=== PATIENT | male | born 1955 | race Caucasian/White ===

== ENCOUNTER → 2017-07-12 | Outpatient (CLI) | payer OTHER ==
--- NOTE | 2017-07-12 15:04 | CTL ---
EXAMINATION TYPE: CT Low Dose Lung DATE OF EXAM ORDERED: 07/12/2017 HISTORY: . Lung cancer screening CT DLP: 77.[address] CTDI: 2.2 mGy Automated exposure control for dose reduction was used. SCREENING VISIT: Initial COMPARISON: CT chest 05/06/2014 TECHNIQUE: Low dose computed tomography scan was performed through the chest at 1 mm thick sections a nd reconstructed images in the coronal plane at [address] DIAGNOSTIC QUALITY: Limited, but interpretable FINDINGS: LUNG NODULES: None. LUNGS: COPD: Severity: Moderate Fibrosis: Severity: None Lymph nodes: Nonenlarged scattered small lymph nodes Other findings: Some streak opacities in the right middle lobe lung base may be some atelectasis. RIGHT PLEURAL SPACE: Effusion: None Calcification: None Thickening: None Pneumothorax: None LEFT PLEURAL SPACE: Effusion: None Calcification: None Thickening: None Pneumothorax: None HEART: Heart Size: Normal Coronary calcification: Moderate Pericardial effusion: None OTHER FINDINGS: Upper abdomen: Normal Bony thorax: Normal Supraclavicular region: Normal Other: The ascending thoracic aorta at the level the main pulmonary artery is 3.7 cm. The main pulmon brittney artery the bifurcation is 2.7 cm. IMPRESSION: No suspicious changes for neoplasm. FOLLOW UP CT CHEST RECOMMENDATION: Screening per protocol [address] LUNG RAD: Lung rad 2
== END | disposition home or self-care (01) ==
LOC: RADCTMAIN 07:54
PROVIDERS: ATTEND Internal Medicine
DX: Z12.2 Encounter for screening for malignant neoplasm of respiratory organs (principal)

== ENCOUNTER → 2018-07-15 | Outpatient (CLI) | payer OTHER ==
--- NOTE | 2018-07-15 13:22 | CTL ---
EXAMINATION TYPE: CT Low Dose Lung DATE OF EXAM ORDERED: 07/15/2018 HISTORY: Long-term tobacco use. Lung cancer screening CT DLP: 80.[address] CTDI: 2.10 mGy Automated exposure control for dose reduction was used. SCREENING VISIT: Second study COMPARISON: CT low dose lung screening CT July 12, 2017 TECHNIQUE: Low dose computed tomography scan was performed through the chest at 1 mm thick sections a nd reconstructed images in the coronal plane at [address] DIAGNOSTIC QUALITY: Limited, but interpretable Some motion artifact degradation is present on current study particularly near diaphragms. FINDINGS: LUNG NODULES: None. LUNGS: COPD: Severity: Mild Fibrosis: Severity: Mild biapical Lymph nodes: None Other findings: None BILATERAL PLEURAL SPACE: Effusion: None Calcification: None Thickening: None Pneumothorax: None HEART: Heart Size: Normal Coronary calcification: Moderate Pericardial effusion: None OTHER FINDINGS: Upper abdomen: None Bony thorax: Moderate multilevel spurring and disc space narrowing mid to lower thoracic spine. Sligh t S-shaped scoliotic curvature. Supraclavicular region: Surgical clips left axillary region redemonstrated. Stable soft tissue nodule possible 1.5 cm left axillary lymph node image 60 with surgical clips superiorly. Other: Ascending aorta measures up to 3.6 cm in diameter axial image 153 not significant change from prior. IMPRESSION: Suboptimal study without suspicious nodules identified. FOLLOW UP CT CHEST RECOMMENDATION: Annual low-dose lung screening CT CT LUNG RAD: Lung-Rad 1 Negative
== END | disposition home or self-care (01) ==
LOC: RADCTMAIN 11:19
PROVIDERS: ATTEND Internal Medicine
DX: Z12.2 Encounter for screening for malignant neoplasm of respiratory organs (principal); Z87.891 Personal history of nicotine dependence

== ENCOUNTER 2018-08-14 09:21 | Day surgery (SDC) | payer OTHER ==
[2018-08-08 15:35] VITALS: BMI 26.4
[~2018-08-14 09:21] MED LIST: LACTATED RINGERS 1,000 ML IV SCH; LIDOCAINE 1% 20 ML VIAL (10MG/ML) FOR IV START INTRADERMA PRN
[2018-08-14 09:53] VITALS: RESP 16; TEMP 98.6
[2018-08-14] MEDS ORDERED: PROPOFOL 10 MG/ML 20 ML VIAL IV ONE (10:46)
[2018-08-14] MEDS ORDERED: GLUCAGON 1 MG/ML VIAL ONE (10:46)
--- NOTE | 2018-08-14 10:58 | P.GSHP ---
History of Present Illness H&P Date: 08/14/18 Chief Complaint: Screening colonoscopy This is a 63-year-old male who presents today for screening colonoscopy. Patient's last colonoscopy was over 10 years ago. He denies any significant GI complaints. Past Medical History Past Medical History: Cancer, COPD, Hypertension Additional Past Medical History / Comment(s): hx hodgkins lymphoma History of Any Multi-Drug Resistant Organisms: None Reported Past Surgical History: Adenoidectomy, Hernia Repair, Tonsillectomy Additional Past Surgical History / Comment(s): axilla lymph node removed, margo cataracts Past Anesthesia/Blood Transfusion Reactions: No Reported Reaction Smoking Status: Former smoker - Past Family History Mother Family Medical History: No Reported History Medications and Allergies Home Medications Medication Instructions Recorded Confirmed Type Albuterol Inhaler [Ventolin Hfa 1 - 2 puff INHALATION RT-Q6H 08/08/18 08/14/18 History Inhaler] Ipratropium-Albuterol Nebulize 3 ml INHALATION QID 08/08/18 08/08/18 History [Duoneb 0.5 mg-3 mg/3 ml Soln] Lisinopril 20 mg PO QAM 08/08/18 08/08/18 History Allergies Allergy/AdvReac Type Severity Reaction Status Date / Time No Known Allergies Allergy Verified 08/14/18 09:49 Surgical - Exam Vital Signs Temp Pulse Resp BP Pulse Ox 98.6 F 95 16 149/92 97 08/14/18 09:50 08/14/18 09:50 08/14/18 09:50 08/14/18 09:50 08/14/18 09:50 - General well developed, well nourished, no distress - Eyes PERRL - ENT normal pinna, normal nares - Neck no masses - Respiratory normal expansion - Cardiovascular Rhythm: regular - Abdomen Abdomen: soft, non tender Assessment and Plan Assessment: We'll perform screening colonoscopy.
--- NOTE | 2018-08-14 11:16 | P.OP ---
Date of Procedure: 08/14/18 Preoperative Diagnosis: Screening colonoscopy Postoperative Diagnosis: Internal hemorrhoids Procedure(s) Performed: Colonoscopy Anesthesia: MAC Surgeon: Loy Barragan Pathology: none sent Condition: stable Disposition: PACU Description of Procedure: PROCEDURE: The patient was placed on the endoscopy table in the lateral position. Digital rectal examination was performed which revealed internal hemorrhoids.. The prostate was symmetrical without nodules. Flexible colonoscope was then placed in the patient's anus and passed throughout the entire colon. The ileocecal valve was visualized. The cecum, ascending, transverse, descending and sigmoid colon were normal. The rectum was normal as well. There were no masses, polyps or diverticula noted in the entire colon. The internal hemorrhoids are noted on withdrawal scope. There is no active bleeding.
[2018-08-14 11:36] VITALS: BP 124/66; PULSE 101
== END 2018-08-14 12:06 | disposition home or self-care (01) ==
LOC: ORWHC2ENDO 09:21
PROVIDERS: ATTEND Surgery
DX: Z12.11 Encounter for screening for malignant neoplasm of colon (principal); K64.8 Other hemorrhoids; I10 Essential (primary) hypertension; J44.9 Chronic obstructive pulmonary disease, unspecified; Z85.71 Personal history of Hodgkin lymphoma; Z87.891 Personal history of nicotine dependence; Z79.899 Other long term (current) drug therapy
CPT/HCPCS: J1610; J2704; G0121

== ENCOUNTER → 2019-07-17 | Outpatient (CLI) | payer MEDICARE, OTHER ==
--- NOTE | 2019-07-18 07:27 | CTL ---
EXAMINATION TYPE: CT Low Dose Lung DATE OF EXAM ORDERED: 07/17/2019 HISTORY: Long-term tobacco use. Lung cancer screening CT DLP: [address] CTDI: 1.57 mGy Automated exposure control for dose reduction was used. SCREENING VISIT: Second study after baseline COMPARISON: Prior study July 15, 2018 and older CTs TECHNIQUE: Low dose computed tomography scan was performed through the chest at 1 mm thick sections a nd reconstructed images in the coronal plane at [address] DIAGNOSTIC QUALITY: Limited, but interpretable Some motion artifact degradation is present on current study particularly near diaphragms. FINDINGS: LUNG NODULES: None of significance measuring greater than 5 mm. LUNGS: COPD: Severity: Moderate Fibrosis: Severity: Mild to moderate biapical redemonstrated Lymph nodes: No greater than 1 cm Other findings: None BILATERAL PLEURAL SPACE: Effusion: None Calcification: None Thickening: None Pneumothorax: None HEART: Heart Size: Normal Coronary calcification: Moderate Pericardial effusion: None OTHER FINDINGS: Upper abdomen: Low dense thickening to both adrenal glands consistent with benign lipid rich hyperpla cinthya redemonstrated greater in the left. Bony thorax: Exaggerated thoracic kyphosis with mild multilevel spurring. Scoliotic curvature redemon strated. Supraclavicular region: Surgical clips left axillary region redemonstrated. Stable prominent but biop sied lymph node left axilla axial image 41 series 4. Other: None. IMPRESSION: Slightly suboptimal study without new suspicious greater than [address] CHEST RECOMMENDATION: Consider annual low-dose lung screening CT. CT LUNG RAD: Lung-Rad 1 Negative
== END | disposition home or self-care (01) ==
LOC: RADCTMAIN 15:39
PROVIDERS: ATTEND Internal Medicine Pulmonary Disease
DX: Z12.2 Encounter for screening for malignant neoplasm of respiratory organs (principal); R91.8 Other nonspecific abnormal finding of lung field; F17.210 Nicotine dependence, cigarettes, uncomplicated

== ENCOUNTER 2019-07-28 14:24 | Inpatient (IN) | payer MEDICARE, OTHER ==
[2019-07-28] MEDS ORDERED: IPRATROPIUM-ALBUTEROL 3 ML NEB INHALATION STA (14:30)
[2019-07-28] MEDS ORDERED: methylPREDNISolone SOD SUCCI 125 MG/2 ML VIAL IV STA (14:30)
--- NOTE | 2019-07-28 14:39 | ED ---
General Adult HPI - General Chief complaint: Shortness of Breath Stated complaint: respiratory distress Time Seen by Provider: 07/28/19 14:27 Source: patient, EMS, RN notes reviewed Mode of arrival: EMS Limitations: no limitations - History of Present Illness Initial comments: Patient is a pleasant 64-year-old male presenting to the emergency Department with complaints of cough and difficulty in breathing. Onset of symptoms was yesterday. Symptoms were much worse today. Cough is mild. Dyspnea was severe. Patient was only able to walk 5 or 6 feet before having to stop because of dyspnea. No chest pain. Patient does have history of similar symptoms. Sleep associated with COPD. Cough is been mild and nonproductive. No fever. - Related Data Home Medications Medication Instructions Recorded Confirmed Albuterol Inhaler [Ventolin Hfa 1 - 2 puff INHALATION RT-Q6H 08/08/18 08/14/18 Inhaler] Ipratropium-Albuterol Nebulize 3 ml INHALATION QID 08/08/18 08/08/18 [Duoneb 0.5 mg-3 mg/3 ml Soln] Lisinopril 20 mg PO QAM 08/08/18 08/08/18 Allergies Allergy/AdvReac Type Severity Reaction Status Date / Time No Known Allergies Allergy Verified 07/28/19 14:35 Review of Systems ROS Statement: Those systems with pertinent positive or pertinent negative responses have been documented in the HPI. ROS Other: All systems not noted in ROS Statement are negative. Constitutional: Denies: fever Eyes: Denies: eye pain ENT: Denies: ear pain Respiratory: Reports: as per HPI, dyspnea Cardiovascular: Denies: chest pain Endocrine: Reports: fatigue Gastrointestinal: Denies: abdominal pain Genitourinary: Denies: dysuria Musculoskeletal: Denies: back pain Skin: Denies: rash Neurological: Denies: weakness Past Medical History Past Medical History: Cancer, COPD, Hypertension Additional Past Medical History / Comment(s): hx hodgkins lymphoma History of Any Multi-Drug Resistant Organisms: None Reported Past Surgical History: Adenoidectomy, Hernia Repair, Tonsillectomy Additional Past Surgical History / Comment(s): axilla lymph node removed, margo cataracts Past Anesthesia/Blood Transfusion Reactions: No Reported Reaction Past Psychological History: No Psychological Hx Reported Smoking Status: Current some day smoker Past Alcohol Use History: None Reported Past Drug Use History: None Reported - Past Family History Mother Family Medical History: No Reported History General Exam Limitations: no limitations General appearance: alert Head exam: Present: normocephalic Eye exam: Present: normal appearance, PERRL ENT exam: Present: normal oropharynx Neck exam: Present: normal inspection Respiratory exam: Present: wheezes, decreased breath sounds Cardiovascular Exam: Present: tachycardia GI/Abdominal exam: Present: soft. Absent: tenderness Extremities exam: Present: normal inspection. Absent: pedal edema, calf tenderness Back exam: Present: normal inspection Neurological exam: Present: alert Psychiatric exam: Present: normal affect, normal mood Skin exam: Present: normal color Course Vital Signs 07/28/19 07/28/19 07/28/19 14:29 14:53 15:15 Temperature 100.1 F H Pulse Rate 123 H 114 H Respiratory 24 22 18 Rate Blood Pressure 212/122 O2 Sat by Pulse 95 Oximetry 07/28/19 07/28/19 07/28/19 15:25 16:01 16:20 Temperature Pulse Rate 111 H 113 H 114 H Respiratory 18 14 18 Rate Blood Pressure 181/126 O2 Sat by Pulse 91 L 95 Oximetry 07/28/19 16:40 Temperature Pulse Rate Respiratory Rate Blood Pressure 173/114 O2 Sat by Pulse Oximetry - Reevaluation(s) Reevaluation #1: 07/28/19 16:43 There is concern for possible pneumonia and sepsis diagnosed at 1640. Blood culture and lactic acid and IV antibiotics will be ordered. EKG Findings - EKG Comments: EKG Findings:: Sinus tachycardia 113. NV 1:30. QRS 86. QT 342. QTC 469. Normal axis. Septal Q's. No acute ST change. Medical Decision Making - Medical Decision Making Patient reevaluated. Patient and family updated. Breath sounds are improved however still patient is short of breath and tachycardic. Case was discussed in detail with Dr. Hilliard, who will admit covering for Dr. Polanco. - Lab Data Result diagrams: 07/28/19 15:06 07/28/19 15:06 Lab Results 07/28/19 07/28/19 07/28/19 Range/Units 15:06 15:06 15:06 WBC 12.9 H (3.8-10.6) k/uL RBC 5.48 (4.30-5.90) m/uL Hgb 16.8 (13.0-17.5) gm/dL Hct 52.0 (39.0-53.0) % MCV 94.9 (80.0-100.0) fL MCH 30.7 (25.0-35.0) pg MCHC 32.4 (31.0-37.0) g/dL RDW 13.2 (11.5-15.5) % Plt Count 212 (150-450) k/uL Neutrophils % 88 % Lymphocytes % 5 % Monocytes % 6 % Eosinophils % 0 % Basophils % 0 % Neutrophils # 11.3 H (1.3-7.7) k/uL Lymphocytes # 0.6 L (1.0-4.8) k/uL Monocytes # 0.7 (0-1.0) k/uL Eosinophils # 0.0 (0-0.7) k/uL Basophils # 0.0 (0-0.2) k/uL PT 10.3 (9.0-12.0) sec INR 1.0 (<1.2) APTT 22.5 (22.0-30.0) sec Sodium 143 (137-145) mmol/L Potassium 5.0 (3.5-5.1) mmol/L Chloride 106 (98-107) mmol/L Carbon Dioxide 24 (22-30) mmol/L Anion Gap 13 mmol/L BUN 30 H (9-20) mg/dL Creatinine 0.95 (0.66-1.25) mg/dL Est GFR (CKD-EPI)AfAm >90 (>60 ml/min/1.73 sqM) Est GFR (CKD-EPI)NonAf 84 (>60 ml/min/1.73 sqM) Glucose 101 H (74-99) mg/dL Plasma Lactic Acid Artur (0.7-2.0) mmol/L Calcium 9.4 (8.4-10.2) mg/dL Total Bilirubin 0.5 (0.2-1.3) mg/dL AST 29 (17-59) U/L ALT 18 (4-49) U/L Alkaline Phosphatase 104 (38-126) U/L Total Protein 6.7 (6.3-8.2) g/dL Albumin 4.3 (3.5-5.0) g/dL Influenza Type A RNA (Not Detectd) Influenza Type B (PCR) (Not Detectd) 07/28/19 07/28/19 Range/Units 15:06 16:20 WBC (3.8-10.6) k/uL RBC (4.30-5.90) m/uL Hgb (13.0-17.5) gm/dL Hct (39.0-53.0) % MCV (80.0-100.0) fL MCH (25.0-35.0) pg MCHC (31.0-37.0) g/dL RDW (11.5-15.5) % Plt Count (150-450) k/uL Neutrophils % % Lymphocytes % % Monocytes % % Eosinophils % % Basophils % % Neutrophils # (1.3-7.7) k/uL Lymphocytes # (1.0-4.8) k/uL Monocytes # (0-1.0) k/uL Eosinophils # (0-0.7) k/uL Basophils # (0-0.2) k/uL PT (9.0-12.0) sec INR (<1.2) APTT (22.0-30.0) sec Sodium (137-145) mmol/L Potassium (3.5-5.1) mmol/L Chloride (98-107) mmol/L Carbon Dioxide (22-30) mmol/L Anion Gap mmol/L BUN (9-20) mg/dL Creatinine (0.66-1.25) mg/dL Est GFR (CKD-EPI)AfAm (>60 ml/min/1.73 sqM) Est GFR (CKD-EPI)NonAf (>60 ml/min/1.73 sqM) Glucose (74-99) mg/dL Plasma Lactic Acid Artur 1.3 (0.7-2.0) mmol/L Calcium (8.4-10.2) mg/dL Total Bilirubin (0.2-1.3) mg/dL AST (17-59) U/L ALT (4-49) U/L Alkaline Phosphatase (38-126) U/L Total Protein (6.3-8.2) g/dL Albumin (3.5-5.0) g/dL Influenza Type A RNA Not Detected (Not Detectd) Influenza Type B (PCR) Not Detected (Not Detectd) - Radiology Data Radiology results: image reviewed (Chest x-ray shows diffuse interstitial prominence, correlate for atypical pneumonia or edema or bronchitis) Critical Care Time Critical Care Time: Yes Total Critical Care Time: 32 Disposition Clinical Impression: Acute exacerbation of chronic obstructive pulmonary disease Disposition: ADMITTED IP TO THIS HOSP Condition: Serious Is patient prescribed a controlled substance at d/c from ED?: No Referrals: Blake Daniel [Primary Care Provider] - 1-2 days Time of Disposition: 16:31 Decision Time: 16:31
[2019-07-28 15:29] LABS: Basophils % (A) 0 %; Eosinophils % (A) 0 %; HGB 16.8 gm/dL (13.0-17.5); Lymphocytes # (A) 0.6 k/uL (1.0-4.8); Lymphocytes % (A) 5 %; MCH 30.7 pg (25.0-35.0); MCHC 32.4 g/dL (31.0-37.0); MCV 94.9 fL (80.0-100.0); Mean Platelet Volume 8.6; Monocytes # (A) 0.7 k/uL (0-1.0); Monocytes % (A) 6 %; Neutrophils # (A) 11.3 k/uL (1.3-7.7); Neutrophils % (A) 88 %; Platelet Count 212 k/uL (150-450); RBC 5.48 m/uL (4.30-5.90); RDW 13.2 % (11.5-15.5); WBC 12.9 k/uL (3.8-10.6)
[2019-07-28 15:35] LABS: Partial Thromboplastin Time 22.5 sec (22.0-30.0); Prothrombin Time 10.3 sec (9.0-12.0)
[2019-07-28] MEDS ORDERED: ACETAMINOPHEN TAB 500 MG TAB PO STA (15:39)
[2019-07-28] MEDS ORDERED: ENALAPRILAT 1.25 MG/ML 1 ML VIAL IVP STA ×2 (15:40→16:40)
[2019-07-28 15:44] LABS: ALT 18 U/L (4-49); AST 29 U/L (17-59); African American GFR (CKD) >90 (>60 ml/min/1.73 sqM); Albumin 4.3 g/dL (3.5-5.0); Alkaline Phosphatase 104 U/L (38-126); Anion Gap 13 mmol/L; Blood Urea Nitrogen 30 mg/dL (9-20); Calcium 9.4 mg/dL (8.4-10.2); Carbon Dioxide 24 mmol/L (22-30); Chloride 106 mmol/L (98-107); Glucose 101 mg/dL (74-99); Non-African American GFR(CKD) 84 (>60 ml/min/1.73 sqM); Sodium 143 mmol/L (137-145); Total Bilirubin 0.5 mg/dL (0.2-1.3); Total Protein 6.7 g/dL (6.3-8.2)
--- NOTE | 2019-07-28 15:51 | XR ---
EXAMINATION TYPE: XR chest 2V DATE OF EXAM: 07/28/2019 COMPARISON: 04/22/2014 HISTORY: Difficulty breathing TECHNIQUE: Frontal and lateral views of the chest are obtained. FINDINGS: Diffuse interstitial prominence has increased from the prior. There is no focal air space opacity, pleural effusion, or pneumothorax seen. Surgical clips in the left axilla. Pulmonary hyperi nflation with flattening of the diaphragms on the lateral view suggests underlying COPD. The cardiac silhouette size is within normal limits. Diffuse osseous demineralization. The osseous structures ar e intact. Mild multilevel degenerative change of the spine. IMPRESSION: Diffuse interstitial prominence, increased from the prior. Consider atypical pneumonia, diffuse mild interstitial pulmonary edema or bronchitis.
[2019-07-28] MEDS ORDERED: PNEUMONIA PROTOCOL UTILIZED 1 EACH MISC PO PRN (16:45)
[2019-07-28] MEDS ORDERED: AZITHROMYCIN 500 MG in SODIUM CHLORIDE 0.9% 250 ML IVPB STA (16:45)
[2019-07-28] MEDS: SODIUM CHLORIDE 0.9% 1,000 ML IV SCH (16:59)
[2019-07-28] MEDS ORDERED: NALOXONE 0.4 MG/ML 1 ML VIAL IV PRN (17:30)
[2019-07-28] MEDS ORDERED: ONDANSETRON 4 MG/2 ML VIAL IVP PRN (17:30)
[2019-07-28] MEDS ORDERED: IPRATROPIUM-ALBUTEROL 3 ML NEB INHALATION PRN (17:31)
--- NOTE | 2019-07-28 17:41 | P.HPIM ---
History of Present Illness H&P Date: 07/28/19 Chief Complaint: sob 64-year-old male with hx of COPD, continues to smoke, not on home O2 presenting to the emergency Department with complaints of cough and difficulty in br eathing. Onset of symptoms was yesterday. Symptoms were much worse today. Cough is mild, dry without phlegm production. Patient also has slight fevers and chills as well as diaphoresis. Activity very limited due to shortness of breath, patient was only able to walk 5 or 6 feet before having to stop because of dyspnea. No chest pain. Patient does have history of similar symptoms. He felt slightly nauseous, no vomiting. No diarrhea. No urinary symptoms. In the emergency department and was found to be tachycardic with slightly elevated blood pressure and tachypnea. He was treated with nebulizations, IV steroids and antibiotics and was admitted for further evaluation and management. Review of Systems Complete review of system performed, pertinent positives per HPI, otherwise negative Past Medical History Past Medical History: Cancer, COPD, Hypertension Additional Past Medical History / Comment(s): hx hodgkins lymphoma History of Any Multi-Drug Resistant Organisms: None Reported Past Surgical History: Adenoidectomy, Hernia Repair, Tonsillectomy Additional Past Surgical History / Comment(s): axilla lymph node removed, margo cataracts Past Anesthesia/Blood Transfusion Reactions: No Reported Reaction Past Psychological History: No Psychological Hx Reported Smoking Status: Current some day smoker Past Alcohol Use History: None Reported Past Drug Use History: None Reported - Past Family History Mother Family Medical History: No Reported History Medications and Allergies Home Medications Medication Instructions Recorded Confirmed Type Albuterol Inhaler [Ventolin Hfa 1 - 2 puff INHALATION RT-Q6H PRN 08/08/18 07/28/19 History Inhaler] Ipratropium-Albuterol Nebulize 3 ml INHALATION RT-QID PRN 08/08/18 07/28/19 History [Duoneb 0.5 mg-3 mg/3 ml Soln] Lisinopril [Zestril] 5 mg PO DAILY 07/28/19 07/28/19 History Allergies Allergy/AdvReac Type Severity Reaction Status Date / Time No Known Allergies Allergy Verified 07/28/19 16:50 Physical Exam Vitals: Vital Signs Temp Pulse Resp BP Pulse Ox 07/28/19 16:40 173/114 07/28/19 16:20 114 H 18 181/126 95 07/28/19 16:01 113 H 14 91 L 07/28/19 15:25 111 H 18 07/28/19 15:15 114 H 18 07/28/19 14:53 22 07/28/19 14:29 100.1 F H 123 H 24 212/122 95 Intake and Output 07/28/19 07/28/19 07/28/19 06:59 14:59 22:59 Other: Weight 72.575 kg Constitutional: Mild to moderate respiratory distress, conversant, pleasant Eyes:Anicteric sclerae, moist conjunctiva, no lid-lag, PERRLA, ENMT: Oropharynx clear, no erythema, exudates Neck: Supple, FROM, no masses, or JVD, No carotid bruits, No thyromegaly Lungs: Bilateral diffuse wheezing, diminished breath sounds bilaterally. Mild accessory muscle use Cardiovascular: Tachycardic, regular No murmurs, gallops, or rubs, No peripheral edema Abdominal: Soft, Nontender, no guarding, rebound or rigidity, Normoactive bowel sounds, No hepatomegaly, No splenomegaly, No palpable mass Skin: Normal temperature, tone, texture, turgor, no induration, No subcutaneous nodules, No rash, lesions, No ulcers Extremities: No digital cyanosis, No clubbing, Pedal pulses intact and symmetrical, Radial pulses intact and symmetrical, No calf tenderness Psychiatric: Alert and oriented to person, place and time, appropriate affect, intact judgement Neuro: Muscles Strength 5/5 in all 4 extremities, Sensation to light touch grossly present throughout, Cranial nerves II-XII grossly intact, no focal sensory deficits Results CBC & Chem 7: 07/28/19 15:06 07/28/19 15:06 Labs: Abnormal Lab Results - Last 24 Hours (Table) 07/28/19 07/28/19 Range/Units 15:06 15:06 WBC 12.9 H (3.8-10.6) k/uL Neutrophils # 11.3 H (1.3-7.7) k/uL Lymphocytes # 0.6 L (1.0-4.8) k/uL BUN 30 H (9-20) mg/dL Glucose 101 H (74-99) mg/dL Assessment and Plan Plan: Acute sepsis/acute community-acquired pneumonia Blood cultures obtained in the emergency department Send sputum cultures Antibiotics DuoNeb Steroids Acute COPD exacerbation Management as above Accelerated hypertension Patient has history of hypertension but he is currently not taking his BP meds Restart lisinopril Hold IV fluids Smoking Counseled to quit History of Hodgkins Lymphoma Currently in remission Admitted to inpatient, expected length of stay left more than 2 midnight Anticipated disposition: Home Anticipated discharge: 2-3 days Sepsis - Sepsis Sepsis Focused Exam #1 Sepsis Focused Exam Date: 07/28/19 Sepsis Focused Exam Time: 17:00 Sepsis Focused Exam Complete: Yes Capillary Refill: < 2 Seconds: Fingers, Toes Peripheral Pulses: Normal: Radial (R), Radial (L), Posterior Tibialis (R), Posterior Tibialis (L), Dorsalis Pedis (R), Dorsalis Pedis (L) Skin Color: Normal for Patient Respiratory Exam: respiratory distress, wheezes, rhonchi, decreased breath sounds Cardiovascular Exam: regular rate, tachycardia
[2019-07-28] MEDS: methylPREDNISolone SOD SUCCI 125 MG/2 ML VIAL IV SCH ×2 (19:07→23:51)
[2019-07-28] MEDS: IPRATROPIUM-ALBUTEROL 3 ML NEB INHALATION SCH (19:12)
[2019-07-28] MEDS: LISINOPRIL 5 MG TAB PO SCH (20:48)
[2019-07-29] MEDS ORDERED: hydrALAZINE HCL 25 MG TAB PO STA ×2 (03:22→06:52)
[2019-07-29] MEDS: SODIUM CHLORIDE 0.9% 1,000 ML IV SCH ×2 (03:28→12:07)
[2019-07-29] MEDS: methylPREDNISolone SOD SUCCI 125 MG/2 ML VIAL IV SCH ×3 (05:11→17:32)
[2019-07-29 06:28] LABS: Basophils % (A) 0 %; Eosinophils % (A) 0 %; HCT 49.2 % (39.0-53.0); HGB 15.9 gm/dL (13.0-17.5); Lymphocytes # (A) 0.7 k/uL (1.0-4.8); Lymphocytes % (A) 6 %; MCH 30.8 pg (25.0-35.0); MCHC 32.3 g/dL (31.0-37.0); MCV 95.5 fL (80.0-100.0); Mean Platelet Volume 8.5; Monocytes # (A) 0.3 k/uL (0-1.0); Monocytes % (A) 3 %; Neutrophils # (A) 11.1 k/uL (1.3-7.7); Neutrophils % (A) 90 %; Platelet Count 218 k/uL (150-450); RBC 5.15 m/uL (4.30-5.90); RDW 13.2 % (11.5-15.5); WBC 12.3 k/uL (3.8-10.6)
[2019-07-29 06:42] LABS: African American GFR (CKD) >90 (>60 ml/min/1.73 sqM); Anion Gap 10 mmol/L; Blood Urea Nitrogen 35 mg/dL (9-20); Calcium 9.2 mg/dL (8.4-10.2); Carbon Dioxide 26 mmol/L (22-30); Chloride 108 mmol/L (98-107); Glucose 131 mg/dL (74-99); Magnesium 2.4 mg/dL (1.6-2.3); Non-African American GFR(CKD) 88 (>60 ml/min/1.73 sqM); Phosphorus 4.4 mg/dL (2.5-4.5); Sodium 144 mmol/L (137-145)
[2019-07-29 06:47] LABS: Glucose,Whole Blood 126 mg/dL (75-99)
[2019-07-29] MEDS: INSULIN ASPART (NovoLOG) 100 UNIT/ML VIAL SQ SCH ×4 (06:48→20:53)
--- NOTE | 2019-07-29 07:50 | CONS ---
CONSULTATION Rogelio Mckeon is a 64-year-old male who presented to the ED at [facility] with increasing shortness of breath of about 2 days' duration. He denied any fever or chills. He had some cough but was not bringing up much phlegm. He subsequently was admitted for further evaluation and management. PAST MEDICAL HISTORY: Positive for COPD, asthma, hypertension, Hodgkin lymphoma, history of lung fibrotic changes, which may have been partly due to his previous treatment for lymphoma. FAMILY HISTORY: Noncontributory. SOCIAL HISTORY: Patient is an everyday smoker. He smokes 1-2 packs of cigarettes per day. He does not drink alcohol excessively. MEDICATIONS: Prior to admission were lisinopril, DuoNeb, and Ventolin. REVIEW OF SYSTEMS: Noncontributory. PHYSICAL EXAMINATION: His blood pressure is 150/101, respiratory rate 20, pulse rate of 105, temperature 98.1, O2 saturation on 3 L by nasal cannula is 93%. When he came to the ER, his temperature had been 100.1 degrees Fahrenheit. HEENT: Reveals pupils that are equal, no jugular venous distention. CHEST: Reveals decreased breath sounds. Prolonged expiration. Expiratory wheeze on forced exhalation. Scattered basal crackles and hyperinflated chest. LABORATORY DATA: White count is 12.9, hemoglobin of 16.8. Sodium 143, potassium 5, chloride 106, bicarb 24, BUN 30, creatinine 0.95. Chest x-ray shows interstitial prominence. IMPRESSION: 1. Acute on chronic respiratory failure secondary to asthma with chronic obstructive pulmonary disease with acute exacerbation. 2. Polycythemia in part due to chronic hypoxemia is likely. 3. Interstitial changes that somewhat may be due to chronic lung fibrosis, baseline. At this point in time, I would keep him on azithromycin and Rocephin because of his low- grade fever. Keep him on bronchodilators and aerosolized steroids. Keep him on IV steroids and supplemental oxygen. Depending on how he does, we shall make further changes to his care. He was counseled regarding his condition and this approach and has a fair understanding of our recommendations. MMODL / IJN: [id number] /
[2019-07-29] MEDS: IPRATROPIUM-ALBUTEROL 3 ML NEB INHALATION SCH ×4 (07:54→19:12)
[2019-07-29] MEDS: BUDESONIDE 0.5 MG/2 ML NEBU INHALATION SCH ×2 (07:54→19:12)
[2019-07-29] MEDS: LISINOPRIL 5 MG TAB PO SCH (08:49)
[2019-07-29] MEDS: AZITHROMYCIN 500 MG TAB PO SCH (08:49)
[2019-07-29] MEDS: METOPROLOL TARTRATE 25 MG TAB PO SCH ×2 (08:49→20:53)
--- NOTE | 2019-07-29 08:56 | XR ---
EXAMINATION TYPE: XR chest 2V DATE OF EXAM: 07/29/2019 COMPARISON: Prior chest x-ray 07/28/2019 HISTORY: Pneumonia TECHNIQUE: Frontal and lateral views of the chest are obtained. FINDINGS: There are prominent lung volumes with flattening the hemidiaphragms, increased retrosterna l airspace, AP dimension of the chest is increased consistent with underlying emphysema, COPD. Aorta is dense and ectatic. Heart is stable. Patient is rotated. No pneumothorax or pleural effusion. Apica l pleural thickening is mild. Bones are stable. Surgical clips present in the left axilla. IMPRESSION: No acute cardiopulmonary process. COPD. Additional findings above.
[2019-07-29] MEDS ORDERED: SODIUM CHLORIDE 0.65% NASAL SPRAY 44 ML BTL NASAL PRN (09:41)
--- NOTE | 2019-07-29 11:42 | P.PN ---
Subjective Progress Note Date: 07/29/19 Principal diagnosis: sob Patient is feeling little better today. Still having nasal congestion and cough. His blood pressure and heart rate have been elevated since he was admit [facility] last night. Objective - Vital Signs Vital signs: Vital Signs Temp 98.1 F 07/29/19 03:01 Pulse 102 H 07/29/19 08:09 Resp 14 07/29/19 03:12 BP 208/106 07/29/19 07:08 Pulse Ox 93 L 07/29/19 03:01 Intake & Output 07/28/19 07/29/19 07/29/19 18:59 06:59 18:59 Intake Total 940 Output Total 300 400 Balance 640 -400 Weight 72.575 kg 62.9 kg Intake: Intake, IV Titration 400 Amount cefTRIAXone 1 gm In 400 Sodium Chloride 0.9% 50 ml @ 100 mls/hr IVPB [facility] Rx#:[id number] Oral 540 Output: Urine 300 400 Other: Voiding Method Urinal # Bowel Movements 0 - Exam Constitutional: Mild to moderate respiratory distress, conversant, pleasant Eyes:Anicteric sclerae, moist conjunctiva, no lid-lag, PERRLA, ENMT: Oropharynx clear, no erythema, exudates Neck: Supple, FROM, no masses, or JVD, No carotid bruits, No thyromegaly Lungs: Bilateral diffuse wheezing, diminished breath sounds bilaterally. Mild accessory muscle use Cardiovascular: Tachycardic, regular No murmurs, gallops, or rubs, No peripheral edema Abdominal: Soft, Nontender, no guarding, rebound or rigidity, Normoactive bowel sounds, No hepatomegaly, No splenomegaly, No palpable mass Skin: Normal temperature, tone, texture, turgor, no induration, No subcutaneous nodules, No rash, lesions, No ulcers Extremities: No digital cyanosis, No clubbing, Pedal pulses intact and symmetrical, Radial pulses intact and symmetrical, No calf tenderness Psychiatric: Alert and oriented to person, place and time, appropriate affect, intact judgement Neuro: Muscles Strength 5/5 in all 4 extremities, Sensation to light touch grossly present throughout, Cranial nerves II-XII grossly intact, no focal sensory deficits - Labs CBC & Chem 7: 07/29/19 05:57 07/29/19 05:57 Labs: Abnormal Lab Results - Last 24 Hours (Table) 0307/28/19 07/29/19 Range/Units 15:06 15:06 05:57 WBC 12.9 H 12.3 H (3.8-10.6) k/uL Neutrophils # 11.3 H 11.1 H (1.3-7.7) k/uL Lymphocytes # 0.6 L 0.7 L (1.0-4.8) k/uL Chloride (98-107) mmol/L BUN 30 H (9-20) mg/dL Glucose 101 H (74-99) mg/dL POC Glucose (mg/dL) (75-99) mg/dL Magnesium (1.6-2.3) mg/dL 07/29/19 07/29/19 Range/Units 05:57 06:45 WBC (3.8-10.6) k/uL Neutrophils # (1.3-7.7) k/uL Lymphocytes # (1.0-4.8) k/uL Chloride 108 H (98-107) mmol/L BUN 35 H (9-20) mg/dL Glucose 131 H (74-99) mg/dL POC Glucose (mg/dL) 126 H (75-99) mg/dL Magnesium 2.4 H (1.6-2.3) mg/dL Assessment and Plan Plan: Acute sepsis/acute community-acquired pneumonia Blood cultures obtained in the emergency department Sputum cultures Antibiotics DuoNeb Steroids Nasal spray for congestion Acute COPD exacerbation Management as above Accelerated hypertension Patient has history of hypertension but he was not taking his BP meds Restarted lisinopril Add metoprolol 25mg p.o bid Smoking Counseled to quit History of Hodgkins Lymphoma Currently in remission Admitted to inpatient, expected length of stay left more than 2 midnight Anticipated disposition: Home Anticipated discharge: 1-2 days
[2019-07-29 11:56] VITALS: BMI 21.0
[2019-07-29 12:08] LABS: Glucose,Whole Blood 114 mg/dL (75-99)
[2019-07-29 17:08] LABS: Glucose,Whole Blood 130 mg/dL (75-99)
[2019-07-29 20:36] LABS: Glucose,Whole Blood 136 mg/dL (75-99)
--- NOTE | 2019-07-29 22:07 | PN ---
PROGRESS NOTE DATE OF SERVICE: 07/29/2019 This patient has been hemodynamically stable. He continues to have shortness of breath and is only slightly better at this time. On physical examination, blood pressure is 175/86, respiratory rate of 18, pulse rate 99. Oxygen on 3 L by nasal cannula is 97%. HEENT is unremarkable. Chest reveals decreased breath sounds, prolonged exhalations, scattered crackles, bilateral expiratory wheeze. Cardiovascular system reveals an S1, S2. Abdomen is soft. There is no pedal edema. White count is 12.3, hemoglobin of 15.9, sodium 144, potassium 5, chloride 108, bicarb 26, BUN 35, creatinine 0.91. IMPRESSION AT THIS TIME: 1. Severe chronic obstructive pulmonary disease with asthma with acute exacerbation. 2. Lung fibrosis. Continue the patient on azithromycin, Rocephin, budesonide, IV steroids, bronchodilators and aerosolized steroids. His prognosis is fair. MMODL / IJN: [id number] /
[2019-07-30] MEDS: IPRATROPIUM-ALBUTEROL 3 ML NEB INHALATION PRN (05:18)
[2019-07-30 05:56] LABS: Glucose,Whole Blood 115 mg/dL (75-99)
[2019-07-30] MEDS: SODIUM CHLORIDE 0.9% 1,000 ML IV SCH ×3 (06:04→16:59)
[2019-07-30] MEDS: methylPREDNISolone SOD SUCCI 125 MG/2 ML VIAL IV SCH ×4 (06:06→16:59)
[2019-07-30] MEDS: INSULIN ASPART (NovoLOG) 100 UNIT/ML VIAL SQ SCH ×4 (06:13→21:35)
[2019-07-30] MEDS: BUDESONIDE 0.5 MG/2 ML NEBU INHALATION SCH ×2 (08:30→19:51)
[2019-07-30] MEDS: IPRATROPIUM-ALBUTEROL 3 ML NEB INHALATION SCH ×4 (08:30→19:51)
[2019-07-30] MEDS: METOPROLOL TARTRATE 25 MG TAB PO SCH ×2 (08:56→21:32)
[2019-07-30] MEDS: LISINOPRIL 5 MG TAB PO SCH (08:56)
[2019-07-30] MEDS: AZITHROMYCIN 500 MG TAB PO SCH (08:56)
[2019-07-30 11:43] LABS: Glucose,Whole Blood 100 mg/dL (75-99)
--- NOTE | 2019-07-30 15:03 | P.PN ---
Subjective Progress Note Date: 07/30/19 Principal diagnosis: sob Patient is doing better, breathing is improving. No chest pain. No overnight events. Objective - Vital Signs Vital signs: Vital Signs Temp 98.4 F 07/30/19 08:00 Pulse 97 07/30/19 12:00 Resp 28 H 07/30/19 12:00 BP 141/81 07/30/19 12:58 Pulse Ox 95 07/30/19 12:00 Intake & Output 07/29/19 07/30/19 07/30/19 18:59 06:59 18:59 Intake Total 240 360 Output Total 134 226 6969 Balance -260 400 -5938 Weight 62.9 kg 64.5 kg Intake: Oral 240 360 Output: Urine 759 351 8450 Other: Voiding Method Urinal Urinal Urinal # Voids 200 1 # Bowel Movements 0 0 - Exam Constitutional: Mild to moderate respiratory distress, conversant, pleasant Eyes:Anicteric sclerae, moist conjunctiva, no lid-lag, PERRLA, ENMT: Oropharynx clear, no erythema, exudates Neck: Supple, FROM, no masses, or JVD, No carotid bruits, No thyromegaly Lungs: Bilateral diffuse wheezing, diminished breath sounds bilaterally. Mild accessory muscle use Cardiovascular: Tachycardic, regular No murmurs, gallops, or rubs, No peripheral edema Abdominal: Soft, Nontender, no guarding, rebound or rigidity, Normoactive bowel sounds, No hepatomegaly, No splenomegaly, No palpable mass Skin: Normal temperature, tone, texture, turgor, no induration, No subcutaneous nodules, No rash, lesions, No ulcers Extremities: No digital cyanosis, No clubbing, Pedal pulses intact and symmetrical, Radial pulses intact and symmetrical, No calf tenderness Psychiatric: Alert and oriented to person, place and time, appropriate affect, intact judgement Neuro: Muscles Strength 5/5 in all 4 extremities, Sensation to light touch g rossly present throughout, Cranial nerves II-XII grossly intact, no focal sensory deficits - Labs CBC & Chem 7: 07/29/19 05:57 07/29/19 05:57 Labs: Abnormal Lab Results - Last 24 Hours (Table) 07/29/19 07/29/19 07/30/19 Range/Units 17:00 20:35 05:54 POC Glucose (mg/dL) 130 H 136 H 115 H (75-99) mg/dL 07/30/19 Range/Units 11:40 POC Glucose (mg/dL) 100 H (75-99) mg/dL Microbiology - Last 24 Hours (Table) 07/28/19 15:06 Blood Culture - Preliminary Blood No Growth after 24 hours Assessment and Plan Plan: Acute sepsis/acute community-acquired pneumonia Blood cultures still no growth Sputum cultures Continue antibiotics, DuoNeb, steroids Nasal saline spray for congestion Acute COPD exacerbation Management as above Accelerated hypertension Improved Patient has history of hypertension but he was not taking his BP meds Restarted lisinopril Added metoprolol 25mg p.o bid Smoking Counseled to quit History of Hodgkins Lymphoma Currently in remission Anticipated disposition: Home Anticipated discharge: 1-2 days
[2019-07-30 16:55] LABS: Glucose,Whole Blood 113 mg/dL (75-99)
--- NOTE | 2019-07-30 17:19 | PN ---
PROGRESS NOTE DATE OF SERVICE: 07/30/2019 This patient has been hemodynamically stable and continues to have shortness of breath, but he is doing better overall. On physical examination, blood pressure is 141/80, respiratory rate 28, pulse rate 97. He is afebrile. Oxygen saturation on room air is 95%. HEENT is unremarkable. Chest reveals decreased breath sounds with prolonged exhalation. Cardiovascular system reveals an S1, S2. Abdomen is soft. There is no pedal edema. IMPRESSION AT THIS TIME: 1. Asthma with acute exacerbation. 2. Chronic obstructive pulmonary disease. 3. Pulmonary fibrosis. Continue IV and aerosolized steroids along with bronchodilators and antibiotics. His prognosis is fair. MMODL / IJN: [id number] /
[2019-07-30 20:42] LABS: Glucose,Whole Blood 148 mg/dL (75-99)
[2019-07-31] MEDS: methylPREDNISolone SOD SUCCI 125 MG/2 ML VIAL IV SCH ×4 (01:50→18:21)
[2019-07-31] MEDS: IPRATROPIUM-ALBUTEROL 3 ML NEB INHALATION PRN (03:35)
[2019-07-31] MEDS ORDERED: FUROSEMIDE 10 MG/ML 2 ML VIAL IV ONE (03:50)
--- NOTE | 2019-07-31 04:07 | XR ---
EXAMINATION TYPE: XR chest 1V portable DATE OF EXAM: 07/31/2019 COMPARISON: 07/29/2019 HISTORY: Short of breath TECHNIQUE: FINDINGS: There is no heart failure. There is mild coarsening of the lung markings. There are no brianne r masses. Thoracic aorta is atheromatous. There is no pleural effusion. There are chest leads. IMPRESSION: No active cardiopulmonary disease. Mild pulmonary fibrotic changes.
[2019-07-31 06:23] LABS: Glucose,Whole Blood 107 mg/dL (75-99)
[2019-07-31] MEDS: INSULIN ASPART (NovoLOG) 100 UNIT/ML VIAL SQ SCH ×4 (07:00→22:04)
[2019-07-31 07:31] LABS: ABG Base Excess 6.7 mmol/L; ABG HCO3 34 mmol/L (21-25); ABG Oxygen Saturation 97.2 % (94-97); ABG PH 7.23 (7.35-7.45); ABG PO2 88 mmHg (83-108); ABG TCO2 37 mmol/L (19-24); Allen Test Performed? Yes
[2019-07-31 07:35] LABS: ABG PCO2 82 mmHg (35-45)
[2019-07-31] MEDS: IPRATROPIUM-ALBUTEROL 3 ML NEB INHALATION SCH ×4 (08:40→19:07)
[2019-07-31] MEDS: BUDESONIDE 0.5 MG/2 ML NEBU INHALATION SCH ×2 (08:40→19:07)
[2019-07-31] MEDS: AZITHROMYCIN 500 MG TAB PO SCH (08:41)
[2019-07-31] MEDS: METOPROLOL TARTRATE 25 MG TAB PO SCH (08:41)
[2019-07-31] MEDS: LISINOPRIL 5 MG TAB PO SCH (08:41)
[2019-07-31] MEDS: LORazepam 2 MG/ML INJ IV PRN ×4 (09:31→19:48)
--- NOTE | 2019-07-31 11:22 | P.PN ---
Subjective Progress Note Date: 07/31/19 Principal diagnosis: sob Patient has some confusion last night, ABG was done that shows severe hypercapnia with PCO2 up in the 80s. Objective - Vital Signs Vital signs: Vital Signs Temp 98.3 F 07/31/19 09:00 Pulse 96 07/31/19 09:17 Resp 20 07/31/19 09:00 BP 179/101 07/31/19 09:00 Pulse Ox 92 L 07/31/19 09:00 Intake & Output 07/30/19 07/31/19 07/31/19 18:59 06:59 18:59 Intake Total 600 1180 100 Output Total 2009 400 Balance -1410 780 100 Weight 66.5 kg Intake: Oral 600 1180 100 Output: Urine 2009 400 Other: Voiding Method Urinal Urinal # Voids 1 1 # Bowel Movements 0 0 - Exam Constitutional: Mild to moderate respiratory distress, conversant, pleasant Eyes:Anicteric sclerae, moist conjunctiva, no lid-lag, PERRLA, ENMT: Oropharynx clear, no erythema, exudates Neck: Supple, FROM, no masses, or JVD, No carotid bruits, No thyromegaly Lungs: Bilateral diffuse wheezing, diminished breath sounds bilaterally. Mild accessory muscle use Cardiovascular: Tachycardic, regular No murmurs, gallops, or rubs, No peripheral edema Abdominal: Soft, Nontender, no guarding, rebound or rigidity, Normoactive bowel sounds, No hepatomegaly, No splenomegaly, No palpable mass Skin: Normal temperature, tone, texture, turgor, no induration, No subcutaneous nodules, No rash, lesions, No ulcers Extremities: No digital cyanosis, No clubbing, Pedal pulses intact and symmetrical, Radial pulses intact and symmetrical, No calf tenderness Psychiatric: Alert and oriented to person, place and time, appropriate affect, intact judgement Neuro: Muscles Strength 5/5 in all 4 extremities, Sensation to light touch grossly present throughout, Cranial nerves II-XII grossly intact, no focal sensory deficits - Labs CBC & Chem 7: 07/29/19 05:57 07/29/19 05:57 Labs: Abnormal Lab Results - Last 24 Hours (Table) 07/30/19 07/30/19 07/30/19 Range/Units 11:40 16:51 20:41 ABG pH (7.35-7.45) ABG pCO2 (35-45) mmHg ABG HCO3 (21-25) mmol/L ABG Total CO2 (19-24) mmol/L ABG O2 Saturation (94-97) % POC Glucose (mg/dL) 100 H 113 H 148 H (75-99) mg/dL 07/31/19 07/31/19 Range/Units 06:22 07:25 ABG pH 7.23 L (7.35-7.45) ABG pCO2 82 H* (35-45) mmHg ABG HCO3 34 H (21-25) mmol/L ABG Total CO2 37 H (19-24) mmol/L ABG O2 Saturation 97.2 H (94-97) % POC Glucose (mg/dL) 107 H (75-99) mg/dL Microbiology - Last 24 Hours (Table) 07/30/19 08:30 Gram Stain - Preliminary Sputum Sputum Culture - Preliminary 07/28/19 15:06 Blood Culture - Preliminary Blood No Growth after 48 hours Assessment and Plan Plan: Acute hypoxic respiratory failure Currently requiring BiPAP Ativan when necessary for anxiety Patient was encouraged to tolerate the BiPAP, Treatment as below Acute sepsis/acute community-acquired pneumonia Blood cultures still no growth Sputum cultures pending Continue antibiotics, DuoNeb, steroids Nasal saline spray for congestion Acute COPD exacerbation Continue steroids and DuoNeb's as above Accelerated hypertension Improved Patient has history of hypertension but he was not taking his BP meds Restarted lisinopril Added metoprolol 25mg p.o bid Smoking Counseled to quit History of Hodgkins Lymphoma Currently in remission Anticipated disposition: Home Anticipated discharge: 1-2 days
[2019-07-31 11:40] LABS: Glucose,Whole Blood 109 mg/dL (75-99)
--- NOTE | 2019-07-31 16:28 | PN ---
PROGRESS NOTE DATE OF SERVICE: 07/31/2019 He became more short of breath and became somnolent during the night. He subsequently had to be placed on BiPAP. He was tachypneic, but right now his blood pressure is 151/84, respiratory rate is 16, pulse rate 82, temperature 98.1, FiO2 is 35%. HEENT reveals pupils that are equal. BiPAP is in place. Chest reveals decreased breath sounds, prolonged expiration, scattered crackles. Cardiovascular system reveals S1 and S2. Abdomen is soft. There is 1+ pedal edema. ABG showed a pH of 7.23, pCO2 of 82, PO2 of 88, bicarb of 34, O2 saturation of 97.2%. IMPRESSION: Impression at this time is: 1. Severe chronic obstructive pulmonary disease with asthma with acute exacerbation. 2. Lung fibrosis, baseline. 3. CO2 narcosis. Continue BiPAP, intravenous steroids, bronchodilators, antibiotics. Small dose of Ativan to calm him down as he has been quite anxious. Prognosis is guarded. MMODL / IJN: [id number] /
[2019-07-31 16:58] LABS: Glucose,Whole Blood 101 mg/dL (75-99)
[2019-07-31] MEDS: HALOPERIDOL LACTATE 5 MG/ML 1 ML VIAL IVP PRN (19:48)
[2019-07-31 21:30] LABS: Glucose,Whole Blood 117 mg/dL (75-99)
[2019-08-01] MEDS: METOPROLOL TARTRATE 25 MG TAB PO SCH ×3 (00:31→22:18)
[2019-08-01] MEDS: methylPREDNISolone SOD SUCCI 125 MG/2 ML VIAL IV SCH ×4 (00:34→17:23)
[2019-08-01] MEDS: IPRATROPIUM-ALBUTEROL 3 ML NEB INHALATION PRN (00:51)
[2019-08-01] MEDS: LORazepam 2 MG/ML INJ IV PRN ×6 (02:16→23:50)
[2019-08-01] MEDS: HALOPERIDOL LACTATE 5 MG/ML 1 ML VIAL IVP PRN ×3 (05:06→19:27)
[2019-08-01 06:19] LABS: Glucose,Whole Blood 115 mg/dL (75-99)
[2019-08-01] MEDS: INSULIN ASPART (NovoLOG) 100 UNIT/ML VIAL SQ SCH ×4 (06:21→22:18)
[2019-08-01] MEDS: BUDESONIDE 0.5 MG/2 ML NEBU INHALATION SCH ×2 (08:13→19:46)
[2019-08-01] MEDS: IPRATROPIUM-ALBUTEROL 3 ML NEB INHALATION SCH ×4 (08:13→19:46)
[2019-08-01] MEDS: LISINOPRIL 5 MG TAB PO SCH (08:14)
--- NOTE | 2019-08-01 08:56 | P.PN ---
Subjective Progress Note Date: 08/01/19 Principal diagnosis: sob Patient had a good night's sleep last night. He is slightly confused and agitated at times. Had to be in restraints last 24 hours on and off. He states that his breathing feels better today. No chest pain. No fevers or chills. Objective - Vital Signs Vital signs: Vital Signs Temp 97.3 F L 07/31/19 16:00 Pulse 82 08/01/19 08:31 Resp 20 08/01/19 04:00 BP 158/78 07/31/19 20:00 Pulse Ox 99 08/01/19 08:15 Intake & Output 07/31/19 08/01/19 08/01/19 18:59 06:59 18:59 Intake Total 880 Output Total 1400 1200 Balance -520 -1200 Weight 67.5 kg Intake: Intake, IV Titration 50 Amount cefTRIAXone 1 gm In 50 Sodium Chloride 0.9% 50 ml @ 100 mls/hr IVPB Q24HR [facility] Rx#:[id number] Oral 830 Output: Urine 1400 1200 Other: Voiding Method Urinal Urinal # Voids 2 2 # Bowel Movements 0 - Exam Constitutional: Mild to moderate respiratory distress, conversant, pleasant Eyes:Anicteric sclerae, moist conjunctiva, no lid-lag, PERRLA, ENMT: Oropharynx clear, no erythema, exudates Neck: Supple, FROM, no masses, or JVD, No carotid bruits, No thyromegaly Lungs: Bilateral diffuse wheezing, diminished breath sounds bilaterally. Mild a ccessory muscle use Cardiovascular: Tachycardic, regular No murmurs, gallops, or rubs, No peripheral edema Abdominal: Soft, Nontender, no guarding, rebound or rigidity, Normoactive bowel sounds, No hepatomegaly, No splenomegaly, No palpable mass Skin: Normal temperature, tone, texture, turgor, no induration, No subcutaneous nodules, No rash, lesions, No ulcers Extremities: No digital cyanosis, No clubbing, Pedal pulses intact and symmetrical, Radial pulses intact and symmetrical, No calf tenderness Psychiatric: Alert and oriented to person, place and time, appropriate affect, intact judgement Neuro: Muscles Strength 5/5 in all 4 extremities, Sensation to light touch grossly present throughout, Cranial nerves II-XII grossly intact, no focal sensory deficits - Labs CBC & Chem 7: 07/29/19 05:57 07/29/19 05:57 Labs: Abnormal Lab Results - Last 24 Hours (Table) 07/31/19 07/31/19 07/31/19 Range/Units 11:37 16:46 21:29 POC Glucose (mg/dL) 109 H 101 H 117 H (75-99) mg/dL 08/01/19 Range/Units 06:17 POC Glucose (mg/dL) 115 H (75-99) mg/dL Microbiology - Last 24 Hours (Table) 07/28/19 15:06 Blood Culture - Preliminary Blood No Growth after 72 hours Assessment and Plan Plan: Acute hypoxic respiratory failure We'll take patient off BiPAP, then we will do ABG in half an hour O2 supplementation Ativan when necessary for anxiety Treatment as below Acute sepsis/acute community-acquired pneumonia Blood cultures still no growth Sputum cultures pending Continue antibiotics, DuoNeb, steroids Nasal saline spray for congestion Acute COPD exacerbation Continue steroids and DuoNeb's as above Accelerated hypertension Improved Patient has history of hypertension but he was not taking his BP meds Restarted lisinopril Added metoprolol 25mg p.o bid Smoking Counseled to quit History of Hodgkins Lymphoma Currently in remission Anticipated disposition: Home Anticipated discharge: 1-2 days
[2019-08-01 09:24] LABS: ABG Base Excess 13.1 mmol/L; ABG Oxygen Saturation 98.7 % (94-97); ABG PH 7.28 (7.35-7.45); ABG PO2 142 mmHg (83-108); ABG TCO2 42 mmol/L (19-24); Allen Test Performed? Yes
[2019-08-01] MEDS: AZITHROMYCIN 500 MG TAB PO SCH (12:08)
[2019-08-01 12:19] LABS: Glucose,Whole Blood 104 mg/dL (75-99)
[2019-08-01] MEDS: MORPHINE SULFATE 2 MG/ML SYRINGE IVP PRN (13:23)
[2019-08-01 17:01] LABS: Glucose,Whole Blood 115 mg/dL (75-99)
[2019-08-01 19:30] LABS: ABG Base Excess 14.3 mmol/L; ABG HCO3 39 mmol/L (21-25); ABG Oxygen Saturation 92.6 % (94-97); ABG PCO2 63 mmHg (35-45); ABG PO2 61 mmHg (83-108); ABG TCO2 41 mmol/L (19-24); Allen Test Performed? Yes
--- NOTE | 2019-08-01 19:57 | P.PN ---
Subjective Progress Note Date: 08/01/19 (Critical care time spent 35 minutes) Principal diagnosis: Acute hypoxic hypercapnic respiratory failure, severe sepsis, acute pneumonia, altered mental status/acute delirium, hypertension hypertensive cardiovascular disease, history of Hodgkin's lymphoma 08/01/2019, patient seen eval examined during the rounds labs reviewed medications reviewed patient remains on BiPAP, current setting current setting have been adjusted to 18/8 FI to decrease to 28% previous blood gases reviewed radiographic studies reviewed, detailed discussion with the sister present at bedside along with mother and granddaughter were done at [facility] patient to be no code, patient have been made no code they expressed that if there is no meaningful objective improvement is noted than what they will consider comfort measure, currently due to anxiety and a prehension patient has been on morphine, Ativan, and HALDOL, last chest x-ray performed yesterday showed bilateral fibrotic changes no acute infiltrative processes have been identified Objective - Vital Signs Vital signs: Vital Signs Temp 96.5 F L 08/01/19 15:50 Pulse 72 08/01/19 16:01 Resp 40 H 08/01/19 16:00 BP 186/91 08/01/19 15:50 Pulse Ox 93 L 08/01/19 15:50 Intake & Output 08/01/19 08/01/19 08/02/19 06:59 18:59 06:59 Intake Total 160 Output Total 1200 325 Balance -1200 -165 Weight 67.5 kg Intake: Intake, IV Titration 60 Amount cefTRIAXone 1 gm In 60 Sodium Chloride 0.9% 50 ml @ 100 mls/hr IVPB Q24HR [facility] Rx#:[id number] Oral 100 Output: Urine 1200 325 Other: Voiding Method Urinal Urinal # Voids 2 2 # Bowel Movements 0 0 - Exam Constitutional: Mild to moderate respiratory distress, with significant anxiety and a prehension has been taking off of CPAP mask on the other hand could not tolerate the high flow oxygen ENMT: Oropharynx clear, no erythema, exudates Neck: Supple, FROM, no masses, or JVD, No carotid bruits, No thyromegaly Lungs: Bilateral diffuse wheezing, diminished breath sounds bilaterally. Positive use of accessory muscle, patient appears to be tiring out Cardiovascular: Tachycardic, regular No murmurs, gallops, or rubs, No peripheral edema Abdominal: Soft, Nontender, no guarding, rebound or rigidity, Normoactive bowel sounds, No hepatomegaly, No splenomegaly, No palpable mass Skin: Normal temperature, tone, texture, turgor, no induration, No subcutaneous nodules, No rash, lesions, No ulcers Extremities: No digital cyanosis, No clubbing, Pedal pulses intact and symm etrical, Radial pulses intact and symmetrical, No calf tenderness Psychiatric/neuro: Oriented 1-2, moving all 4 extremity intermittently - Labs CBC & Chem 7: 07/29/19 05:57 07/29/19 05:57 Labs: Abnormal Lab Results - Last 24 Hours (Table) 07/31/19 08/01/19 08/01/19 Range/Units 21:29 06:17 09:17 ABG pH 7.28 L (7.35-7.45) ABG pCO2 84 H* (35-45) mmHg ABG pO2 142 H (83-108) mmHg ABG HCO3 40 H* (21-25) mmol/L ABG Total CO2 42 H (19-24) mmol/L ABG O2 Saturation 98.7 H (94-97) % POC Glucose (mg/dL) 117 H 115 H (75-99) mg/dL 08/01/19 08/01/19 08/01/19 Range/Units 12:10 16:58 19:24 ABG pH (7.35-7.45) ABG pCO2 63 H (35-45) mmHg ABG pO2 61 L (83-108) mmHg ABG HCO3 39 H (21-25) mmol/L ABG Total CO2 41 H (19-24) mmol/L ABG O2 Saturation 92.6 L (94-97) % POC Glucose (mg/dL) 104 H 115 H (75-99) mg/dL Microbiology - Last 24 Hours (Table) 07/28/19 15:06 Blood Culture - Preliminary Blood No Growth after 96 hours 07/30/19 08:30 Gram Stain - Final Sputum Sputum Culture - Final Assessment and Plan Assessment: Acute COPD exacerbation Acute on chronic hypoxic and hypercapnic respiratory failure Altered mental status/acute delirium Ancillary related hypertension smoking and nicotine use Non-Hodgkin lymphoma Plan: Continue IV steroids breathing treatments and BiPAP adjustment as needed, patient is no code now, patient's family have expressed that if clinical condition and blood gases continued to deteriorate then will consider comfort measure we'll closely follow Time with Patient: Greater than 30
[2019-08-01 20:57] LABS: Glucose,Whole Blood 110 mg/dL (75-99)
[2019-08-02] MEDS: HALOPERIDOL LACTATE 5 MG/ML 1 ML VIAL IVP PRN ×3 (00:01→11:30)
[2019-08-02] MEDS: methylPREDNISolone SOD SUCCI 125 MG/2 ML VIAL IV SCH ×2 (00:01→06:49)
[2019-08-02] MEDS: MORPHINE SULFATE 2 MG/ML SYRINGE IVP PRN ×3 (00:23→09:17)
[2019-08-02] MEDS: LORazepam 2 MG/ML INJ IV PRN ×3 (03:06→11:30)
[2019-08-02 06:04] LABS: Glucose,Whole Blood 100 mg/dL (75-99)
[2019-08-02] MEDS: INSULIN ASPART (NovoLOG) 100 UNIT/ML VIAL SQ SCH (06:19)
[2019-08-02] MEDS: BUDESONIDE 0.5 MG/2 ML NEBU INHALATION SCH (08:13)
[2019-08-02] MEDS: IPRATROPIUM-ALBUTEROL 3 ML NEB INHALATION SCH (08:13)
[2019-08-02 08:34] VITALS: BP 201/101; RESP 26; TEMP 97.9
[2019-08-02 08:36] VITALS: PULSE 72
[2019-08-02] MEDS ORDERED: MORPHINE SULFATE (100 MG/2 ML) 100 MG in SODIUM CHLORIDE 0.9% 100 ML IV SCH (09:15)
--- NOTE | 2019-08-02 13:39 | P.PN ---
Subjective Progress Note Date: 08/02/19 Principal diagnosis: Acute hypoxic hypercapnic respiratory failure, severe sepsis, acute pneumonia, altered mental status/acute delirium, hypertension hypertensive cardiovascular d isease, history of Hodgkin's lymphoma 08/02/2019, patient seen and evaluated examined during the rounds labs reviewed medications reviewed, patient family decided to start hospice care currently patient is on supplemental oxygen along with morphine drip 10 mg hour appears comfortable, hospice team have taken over the care, care plan discussed with mother and sister at bedside at length will follow As-needed basis 08/01/2019, patient seen eval examined during the rounds labs reviewed medications reviewed patient remains on BiPAP, current setting current setting have been adjusted to 18/8 FI to decrease to 28% previous blood gases reviewed radiographic studies reviewed, detailed discussion with the sister present at bedside along with mother and granddaughter were done at [facility] patient to be no code, patient have been made no code they expressed that if there is no meaningful objective improvement is noted than what they will consider comfort measure, currently due to anxiety and a prehension patient has been on morphine, Ativan, and HALDOL, last chest x-ray performed yesterday showed bilateral fibrotic changes no acute infiltrative processes have been identified Objective - Vital Signs Vital signs: Vital Signs Temp 97.9 F 08/02/19 08:00 Pulse 72 08/02/19 08:30 Resp 26 H 08/02/19 08:00 BP 201/101 08/02/19 08:00 Pulse Ox 94 L 08/02/19 08:00 Intake & Output 08/01/19 08/02/19 08/02/19 18:59 06:59 18:59 Intake Total 160 10.03 Output Total 325 600 Balance -165 -600 10.03 Weight 75.5 kg Intake: Intake, IV Titration 60 10.03 Amount Morphine Sulfate (100 mg/ 10.03 2 ml) 100 mg In Sodium Chloride 0.9% 100 ml @ 4 MG/HR 4.08 mls/hr IV . Q24H [facility] Rx#:[id number] cefTRIAXone 1 gm In 60 Sodium Chloride 0.9% 50 ml @ 100 mls/hr IVPB Q24HR [facility] Rx#:[id number] Oral 100 Output: Urine 325 600 Other: Voiding Method Urinal Urinal # Voids 2 3 3 # Bowel Movements 0 0 - Exam Constitutional: Appears comfortable on morphine drip ENMT: Oropharynx clear, no erythema, exudates Neck: Supple, FROM, no masses, or JVD, No carotid bruits, No thyromegaly Lungs: Bilateral diffuse wheezing, diminished breath sounds bilaterally. P ositive use of accessory muscle, patient appears to be tiring out Cardiovascular: Tachycardic, regular No murmurs, gallops, or rubs, No peripheral edema Abdominal: Soft, Nontender, no guarding, rebound or rigidity, Normoactive bowel sounds, No hepatomegaly, No splenomegaly, No palpable mass Skin: Normal temperature, tone, texture, turgor, no induration, No subcutaneous nodules, No rash, lesions, No ulcers Extremities: No digital cyanosis, No clubbing, Pedal pulses intact and symmetrical, Radial pulses intact and symmetrical, No calf tenderness Psychiatric/neuro: Sleeping appears comfortable, moving all 4 extremity intermittently - Labs CBC & Chem 7: 07/29/19 05:57 07/29/19 05:57 Labs: Abnormal Lab Results - Last 24 Hours (Table) 08/01/19 08/01/19 08/01/19 Range/Units 16:58 19:24 20:55 ABG pCO2 63 H (35-45) mmHg ABG pO2 61 L (83-108) mmHg ABG HCO3 39 H (21-25) mmol/L ABG Total CO2 41 H (19-24) mmol/L ABG O2 Saturation 92.6 L (94-97) % POC Glucose (mg/dL) 115 H 110 H (75-99) mg/dL 08/02/19 Range/Units 06:02 ABG pCO2 (35-45) mmHg ABG pO2 (83-108) mmHg ABG HCO3 (21-25) mmol/L ABG Total CO2 (19-24) mmol/L ABG O2 Saturation (94-97) % POC Glucose (mg/dL) 100 H (75-99) mg/dL Microbiology - Last 24 Hours (Table) 07/28/19 15:06 Blood Culture - Preliminary Blood No Growth after 96 hours 07/30/19 08:30 Gram Stain - Final Sputum Sputum Culture - Final Assessment and Plan Assessment: Acute COPD exacerbation Acute on chronic hypoxic and hypercapnic respiratory failure Altered mental status/acute delirium Ancillary related hypertension smoking and nicotine use Non-Hodgkin lymphoma No code and patient and family elected for hospice/comfort measure Plan: Agree with care with hospice we'll follow as needed basis Time with Patient: Greater than 30
--- NOTE | 2019-08-02 13:46 | P.DS ---
Providers Date of admission: 07/28/19 16:45 Expected date of discharge: 08/02/19 Attending physician: Regis Lemus MD Consults: 07/28/19 16:45 Consult Physician Routine Consulting Provider: Dandy Short Consult Reason/Comments: dyspnea Do you want consulting provider notified?: Yes Primary care physician: Blake Daniel Hospital Course: Discharge diagnoses Acute on chronic respiratory failure with hypoxia and hypercapnia Acute COPD exacerbation Metabolic encephalopathy Delirium Essential hypertension non-Hodgkin's lymphoma Hospital course the patient is a 64-year-old male with a history of asthma COPD essential hypertension and non-Hodgkin's lymphoma with history of fibrotic lung changes who continues to smoke that presented to the ER with increasing difficulty breathing over the last 2 days. The patient was noted to be hypoxic and was placed on BiPAP therapy and started on empiric treatment for acute COPD exacerbation with IV steroids Solu-Medrol in coordination with DuoNeb bronchodilator breathing treatments along with empiric IV antibiotics with Rocephin and azithromycin. Chest x-ray was consistent with pulmonary fibrosis, the patient is also noted to have CO2 narcosis and continue to have episodes of encephalopathy related to CO2 retention, he was started on Haldol as needed. The pulmonary was consulted to see the patient who normally follows with Dr. Nettles after ongoing discussions it was decided the patient be a no code and that the patient be transferred for to hospice or comfort care for which family was amenable. The patient was transferred to hospice and started on morphine drip to be titrated for agitation and respiratory distress. The patient was subsequently discharged to hospice. This discharge process took approximately 35 minutes Patient Condition at Discharge: Fair Plan - Discharge Summary Discharge Rx Participant: No New Discharge Prescriptions: Discontinued Albuterol Inhaler [Ventolin Hfa Inhaler] 1 - 2 puff INHALATION RT-Q6H PRN PRN Reason: Shortness Of Breath Ipratropium-Albuterol Nebulize [Duoneb 0.5 mg-3 mg/3 ml Soln] 3 ml INHALATION RT-QID PRN PRN Reason: Shortness Of Breath Lisinopril [Zestril] 5 mg PO DAILY Follow up Appointment(s)/Referral(s): Dandy Short MD [STAFF PHYSICIAN] - 1 Week Blake Daniel [Primary Care Provider] - 1-2 days Patient Instructions/Handouts: How to Stop Smoking (DC), Pneumonia (DC), Chron ic Lung Disease and Infection Prevention (DC) Activity/Diet/Wound Care/Special Instructions: PNEUMONIA 1. Continue coughing and breathing exercises to help clear your lungs of secretions. 2. Sit upright during the day to promote lung expansion. Avoid lying flat. 3. Use incentive spirometer every hour to open your airways. 4. Wash your hands before taking your medications or using your nebulizer. 5. Drink clear liquids as directed, they can help loosen secretions. Avoid milk products, as these can make secretions thicker. 6. Do not smoke, or be around others who smoke. 7. Call your physician if your shortness of breath worsens, if you develop an increased fever greater than 101. Discharge Disposition: [facility]CH [facility]
[2019-08-06 07:42] LABS: ABG HCO3 40 mmol/L (21-25); ABG PCO2 84 mmHg (35-45)
--- NOTE | 2019-08-07 07:11 | CDI ---
Documentation Clarification Form Date: 08/07/2019 06:58:31 AM From: Luann Collins Phone: If you have a question about this query, please contact Rena Alatorre, [employer] at [phone] between 8am and 5pm. Admit Date: 07/28/2019 04:45:00 PM Patient Name: Rogelio Mckeon Visit Number: [id number] Discharge Date: 08/02/2019 02:19:00 PM ATTENTION: The Clinical Documentation Specialists (CDI) and [facility] Coding Staff appreciate your assistance in clarifying documentation. Please respond to the clarification below the line at the bottom and electronically sign. The CDI & [facility] Coding staff will review the response and follow-up if needed. Please note: Queries are made part of the Legal Health Record. If you have any questions, please contact the author of this message via ITS. Dr. Juan Moore Severe Sepsis with pneumonia is documented in H & P with Sepsis focused exam, PN 07/31, PN 08/01 and not carried to [facility]. Please clarify if severe sepsis due to pneumonia was ruled in or ruled out. History/Risk Factors: Patient with COPD and smoker A/C respiratory failure and metabolic encephalopathy had to be restrained. Clinical Indicators: WBC 12.9 Lactic acid: 1.3 Vitals signs on admission: 100.1 F, 123 bpm, 24, 212/122, 95% 4L Treatment: antibiotics DuoNeb Steroids In your professional opinion, please clarify if these findings signify one of the following conditions, whether the condition is POA, and cause, if known: Condition Severe Sepsis ruled out SIRS, without underlying infectious process Sepsis Severe Sepsis Septic Shock Other, please specify Unable to determine Present on Admission Yes No SIRS Criteria (2 or more of the following may indicate SIRS): -Temperature < 96.8F (36C) or > 101.0F (38.3C) -Heart Rate > 90 bpm -Respiratory Rate > 20 breaths/min or PaCO2 < 32 mmHg -White Blood Cell Count > 12,000 or < 4,000 cells/mm3 or > 10% bands -Lactate >2.0 mmol/L (>4.0 is equivalent to septic shock) Sepsis present on admission MTDD
== END 2019-08-02 14:19 | disposition hospice, inpatient (51) | DRG 871 ==
LOC: EC 14:24 → 3SCARD 16:45
PROVIDERS: ADMIT Internal Medicine; ATTEND Internal Medicine
PROC: 5A09357 Assistance with Respiratory Ventilation, Less than 24 Consecutive Hours, Continuous Positive Airway Pressure (ICD-10-PCS; principal; 2019-07-28)
DX: A41.9 Sepsis, unspecified organism (principal); G93.41 Metabolic encephalopathy; J96.21 Acute and chronic respiratory failure with hypoxia; J96.22 Acute and chronic respiratory failure with hypercapnia; J18.9 Pneumonia, unspecified organism; E87.2 Acidosis; J44.0 Chronic obstructive pulmonary disease with (acute) lower respiratory infection; J44.1 Chronic obstructive pulmonary disease with (acute) exacerbation; J45.901 Unspecified asthma with (acute) exacerbation; D75.1 Secondary polycythemia; Z71.6 Tobacco abuse counseling; F17.210 Nicotine dependence, cigarettes, uncomplicated; Z51.5 Encounter for palliative care; Z66 Do not resuscitate; R65.20 Severe sepsis without septic shock; I11.9 Hypertensive heart disease without heart failure; J84.10 Pulmonary fibrosis, unspecified; Z78.1 Physical restraint status; Z79.899 Other long term (current) drug therapy; Z85.71 Personal history of Hodgkin lymphoma; Z98.42 Cataract extraction status, left eye; Z98.41 Cataract extraction status, right eye; R45.1 Restlessness and agitation
CPT/HCPCS: 36415; 36600; 71045; 71046; 80048; 80053; 82805; 83605; 83735; 84100; 85025; 85610; 85730; 87040; 87070; 87205; 87502; 93005; 94640; 94660; 94760; 96365; 96367; 96375; 96376; 99291

== ENCOUNTER 2019-08-02 14:34 | Inpatient (IN) | payer MEDICAID ==
[2019-08-02] MEDS ORDERED: LORazepam 2 MG/ML INJ IV PRN (14:55)
[2019-08-02] MEDS ORDERED: ONDANSETRON 4 MG/2 ML VIAL IVP PRN (14:55)
[2019-08-02] MEDS ORDERED: ACETAMINOPHEN SUPPOSITORY 650 MG SUPP RECTAL PRN (14:55)
[2019-08-02] MEDS ORDERED: ATROPINE OPHTH SOLN 1% 5ML BTL SUBLINGUAL PRN (14:55)
[2019-08-02] MEDS: MORPHINE SULFATE (100 MG/2 ML) 100 MG in SODIUM CHLORIDE 0.9% 100 ML IV SCH ×2 (15:59→20:18)
[2019-08-02 16:17] VITALS: RESP 16
[2019-08-02] MEDS: DOCUSATE 100 MG CAP PO SCH (20:19)
[2019-08-03] MEDS: MORPHINE SULFATE (100 MG/2 ML) 100 MG in SODIUM CHLORIDE 0.9% 100 ML IV SCH (06:07)
--- NOTE | 2019-08-03 07:27 | P.HPIM ---
History of Present Illness H&P Date: 08/03/19 Chief Complaint: hospice the patient is a 64-year-old male with a history of asthma COPD essential hypertension and non-Hodgkin's lymphoma with history of fibrotic lung changes who continues to smoke that presented to the ER with increasing difficulty breathing over the last 2 days. The patient was noted to be hypoxic and was placed on BiPAP therapy and started on empiric treatment for acute COPD exacerbation with IV steroids Solu-Medrol in coordination with DuoNeb bronchodilator breathing treatments along with empiric IV antibiotics with Rocephin and azithromycin. Chest x-ray was consistent with pulmonary fibrosis, the patient is also noted to have CO2 narcosis and continue to have episodes of encephalopathy related to CO2 retention, he was started on Haldol as needed. The pulmonary was consulted to see the patient who normally follows with Dr. Nettles after ongoing discussions it was decided the patient be a no code and that the patient be transferred for to hospice or comfort care for which family was amenable. The patient was transferred to hospice and started on morphine drip to be titrated for agitation and respiratory distress. The patient was subsequently discharged to hospice. Review of Systems Review of systems positive except per HPI Past Medical History Past Medical History: Cancer, COPD, Hypertension Additional Past Medical History / Comment(s): hx hodgkins lymphoma History of Any Multi-Drug Resistant Organisms: None Reported Past Surgical History: Adenoidectomy, Hernia Repair, Tonsillectomy Additional Past Surgical History / Comment(s): axilla lymph node removed, margo cataracts Past Anesthesia/Blood Transfusion Reactions: No Reported Reaction Past Psychological History: No Psychological Hx Reported Smoking Status: Current some day smoker Past Alcohol Use History: Rare Additional Past Alcohol Use History / Comment(s): smoked 1ppd for 45 yrs. Pt states that he smokes two cigarettes every other day. Past Drug Use History: None Reported - Past Family History Mother Family Medical History: No Reported History Father History Unknown: Yes Medications and Allergies Allergies Allergy/AdvReac Type Severity Reaction Status Date / Time No Known Allergies Allergy Verified 08/02/19 16:09 Physical Exam Vitals: Vital Signs Resp 08/03/19 04:00 16 08/02/19 20:00 16 08/02/19 16:00 16 Intake and Output 08/02/19 08/03/19 08/03/19 22:59 06:59 14:59 Intake Total 48.433 102 Balance 48.433 102 Intake: Intake, IV Titration 48.433 102 Amount Morphine Sulfate (100 mg/ 48.433 102 2 ml) 100 mg In Sodium Chloride 0.9% 100 ml @ 1 MG/HR 1.02 mls/hr IV . Q24H [facility] Rx#:[id number] Oral 0 Other: Voiding Method Incontinent Incontinent # Voids 0 Constitutional: Patient obtunded and poorly arousable Eyes: Anicteric sclerae, moist conjunctiva, no lid-lag, pinpoint pupils ENMT: NC/AT,Oropharynx clear, no erythema, exudates Neck:Supple, FROM, no masses, or JVD, No carotid bruits; No thyromegaly Lungs: Diminished in the bases with agonal breaths with noted wheezes, diminished respiratory rate Cardiovascular: Heart regular in rate and rhythm, No murmurs, gallops, or rubs no peripheral edema Abdominal: Soft Nontender, nom distended, no guarding, no rebound or rigidity, Normoactive bowel sounds No hepatomegaly, No splenomegaly, No palpable mass No abdominal wall hernia noted Skin: Normal temperature, tone, texture, turgor, No induration No subcutaneous nodules, No rash, lesions, No ulcers Extremities:No digital cyanosis No clubbing, Pedal pulses intact and symmetrical Radial pulses intact and symmetrical Normal gait and station, No calf tenderness Neuro: Unable to fully assess secondary to being on morphine drip Assessment and Plan Assessment: Acute on chronic respiratory failure with hypoxia and hypercapnia End-stage COPD with acute exacerbation Hospice Metabolic encephalopathy Delirium Essential hypertension non-Hodgkin's lymphoma Plan: The patient is admitted and hospice status after consulting [facility], the patient is continued on morphine drip, Ativan PRN, Zofran, atropine and Tylenol as needed. Continue to monitor.
[2019-08-03 11:56] VITALS: BP 113/66; TEMP 97.6
[2019-08-03] MEDS: DOCUSATE 100 MG CAP PO SCH (14:32)
--- NOTE | 2019-08-03 15:37 | P.DS ---
Providers Date of admission: 08/02/19 14:34 Expected date of discharge: 08/03/19 Attending physician: Juan Moore MD Primary care physician: Blake Daniel [facility] Course: Discharge diagnoses Acute on chronic respiratory failure with hypoxia and hypercapnia End-stage COPD with acute exacerbation Hospice Metabolic encephalopathy Delirium Essential hypertension non-Hodgkin's lymphoma the patient is a 64-year-old male with a history of asthma COPD essential hypertension and non-Hodgkin's lymphoma with history of fibrotic lung changes who continues to smoke that presented to the ER with increasing difficulty breathing over the last 2 days. The patient was noted to be hypoxic and was placed on BiPAP therapy and started on empiric treatment for acute COPD exacerbation with IV steroids Solu-Medrol in coordination with DuoNeb bronchodilator breathing treatments along with empiric IV antibiotics with Rocephin and azithromycin. Chest x-ray was consistent with pulmonary fibrosis, the patient is also noted to have CO2 narcosis and continue to have episodes of encephalopathy related to CO2 retention, he was started on Haldol as needed. The pulmonary was consulted to see the patient who normally follows with Dr. Nettles after ongoing discussions it was decided the patient be a no code and that the patient be transferred for to hospice or comfort care for which family was amenable. The patient was transferred to hospice and started on morphine drip to be titrated for agitation and respiratory distress. The patient was subsequently discharged to hospice and subsequently 08/03/19 at 15:10. Patient Condition at Discharge: Good Plan - Discharge Summary Discharge Rx Participant: No Discharge Disposition: - Preliminary Cause of Preliminary Cause of : End-stage COPD
== END 2019-08-03 16:51 | disposition expired | DRG 951 ==
LOC: 3SCARD 14:34
PROVIDERS: ADMIT Family Medicine; ATTEND Family Medicine
DX: Z51.5 Encounter for palliative care (principal); G93.41 Metabolic encephalopathy; J96.21 Acute and chronic respiratory failure with hypoxia; J96.22 Acute and chronic respiratory failure with hypercapnia; C85.90 Non-Hodgkin lymphoma, unspecified, unspecified site; E87.2 Acidosis; J44.1 Chronic obstructive pulmonary disease with (acute) exacerbation; F17.210 Nicotine dependence, cigarettes, uncomplicated; I10 Essential (primary) hypertension; J84.10 Pulmonary fibrosis, unspecified; Z98.42 Cataract extraction status, left eye; Z98.41 Cataract extraction status, right eye